=== PATIENT | female | born 1990 ===

== ENCOUNTER 2020-07-09 19:49 | Emergency (ER) | payer OTHER ==
[2020-07-09] MEDS ORDERED: HYDROcodone/ACETAMINOPHEN 7.5-325MG TAB PO ONE (21:15)
[2020-07-09] MEDS ORDERED: TETANUS,DIPH,PERTUSS(ACELL) VACCINE 0.5 ML SYRINGE IM ONE (21:15)
[2020-07-09 21:43] LABS: Basophils # (Auto) 0.1 K/mm3 (0.0-0.1); Basophils % (Auto) 0.6 % (0.0-1.8); Eosinophils # (Auto) 0.2 K/mm3 (0.0-0.4); Eosinophils % (Auto) 2.1 % (0.0-4.3); Hematocrit 37.9 % (30.3-42.9); Hemoglobin 13.2 gm/dl (10.1-14.3); Lymphocytes # (Auto) 2.6 K/mm3 (1.2-5.4); Lymphocytes % (Auto) 27.9 % (13.4-35.0); Mean Corpuscular HGB Conc 35 % (30-34); Mean Corpuscular Volume 89 fl (79-97); Monocytes # (Auto) 0.6 K/mm3 (0.0-0.8); Monocytes % (Auto) 6.6 % (0.0-7.3); Platelet Count 333 K/mm3 (140-440); Red Blood Count 4.25 M/mm3 (3.65-5.03); Red Cell Distribution Width 12.5 % (13.2-15.2)
[2020-07-09 22:08] LABS: Alanine Aminotransferase 14 units/L (7-56); Albumin 3.4 g/dL (3.9-5); Blood Urea Nitrogen 6 mg/dL (7-17); Calcium 8.7 mg/dL (8.4-10.2); Hemolysis Index 5
[2020-07-09 22:15] LABS: BUN/Creatinine Ratio 10
--- NOTE | 2020-07-09 22:58 | XRay Report ---
LEFT FOOT 3 VIEW(S) INDICATION / CLINICAL INFORMATION: right big toe injury COMPARISON: None available. FINDINGS: BONES / JOINT(S): Comminuted and displaced intra-articular fracture at the base of the great toe dist al phalanx involving the IP joint. No dislocation. No significant arthritis. SOFT TISSUES: Soft tissue swelling surrounding the IP joint of the great toe. ADDITIONAL FINDINGS: None. Signer Name: Gene Tello MD Signed: 07/09/2020 10:53 PM Workstation Name: [id number]
[2020-07-09] MEDS ORDERED: CLINDAMYCIN 600 MG/50 mL 600 MG/50 ML BAG IV ONE (23:00)
[2020-07-09] MEDS ORDERED: ONDANSETRON 4 MG/2 ML INJ IV ONE (23:00)
[2020-07-09] MEDS ORDERED: MORPHINE 4 MG/1 ML INJ IV ONE (23:00)
[2020-07-09] MEDS ORDERED: LORazepam 2 MG/ML VIAL IV ONE (23:11)
--- NOTE | 2020-07-09 23:22 | Emergency Department Report ---
ED General Adult HPI - General Chief complaint: Extremity Injury, Lower Stated complaint: BILATERAL FINGER INJURY/RT LEG/TOE INJURY Time Seen by Provider: 07/09/20 21:08 Source: patient Mode of arrival: Ambulatory Limitations: No Limitations - History of Present Illness Initial comments: Patient is a 29-year-old female presents emergency room complaints of infection of her left middle finger and right thumb that began approximately 5 days ago. 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 She states that she has a history of uncontrolled diabetes. 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 She reports that today she hit her right big toe against a weight and now has toe pain and swelling. She states that also 5 days ago she stepped on some thumbtacks on her left foot but they did not get stuck and were able to easily be removed without difficulty. She states that she seen a small amount of drainage from her fingers. She denies any drainage from her feet. She has a history of neuropathy but denies any worsening of numbness. She denies any weakness. No fever, vomiting, diarrhea, chills. No allergies to medicines. Severity scale (0 -10): 4 - Related Data Previous Rx's Medication Instructions Recorded Last Taken Type Clindamycin [Clindamycin CAP] 450 mg PO TID 7 Days #63 capsule 07/10/20 Unknown Rx Neomycin/Bacitracin/Polymyxinb 1 applicatio TP BID #14 oint...g. 07/10/20 Unknown Rx [Triple Antibiotic Ointment] traMADoL [Ultram 50 MG tab] 50 mg PO Q8HR PRN #10 tablet 07/10/20 Unknown Rx Allergies Allergy/AdvReac Type Severity Reaction Status Date / Time No Known Allergies Allergy Verified 07/09/20 22:00 ED Review of Systems ROS: Stated complaint: BILATERAL FINGER INJURY/RT LEG/TOE INJURY Other details as noted in HPI Comment: All other systems reviewed and negative ED Past Medical Hx - Past Medical History Previous Medical History?: Yes Hx Diabetes: Yes - Surgical History Past Surgical History?: No - Social History Smoking Status: Current Every Day Smoker Substance Use Type: Alcohol, Marijuana - Medications Home Medications: Home Medications Medication Instructions Recorded Confirmed Last Taken Type Clindamycin [Clindamycin CAP] 450 mg PO TID 7 Days #63 capsule 07/10/20 Unknown Rx Neomycin/Bacitracin/Polymyxinb 1 applicatio TP BID #14 oint...g. 07/10/20 Unknown Rx [Triple Antibiotic Ointment] traMADoL [Ultram 50 MG tab] 50 mg PO Q8HR PRN #10 tablet 07/10/20 Unknown Rx ED Physical Exam - General Limitations: No Limitations General appearance: alert, in no apparent distress - Head Head exam: Present: atraumatic, normocephalic - Eye Eye exam: Present: normal appearance - ENT ENT exam: Present: mucous membranes moist - Respiratory Respiratory exam: Absent: respiratory distress, accessory muscle use - Extremities Exam Extremities exam: Present: pedal edema ( ttp and mild edema to the right big toe, no induration or signs of infection to the right big toe, no signs of puncture to the left foot, no ttp, FROM of the BLE, neurovascularly intact BU E/BLE), other (there is a 2 cm area of induration to the distal end of the left middle finger palmar surface with fluctuance, there is a 1 cm blister filled with fluid and pus to the dorsal surface of the right thumb, FROM of the BUE, ) - Neurological Exam Neurological exam: Present: alert, oriented X3 - Psychiatric Psychiatric exam: Present: normal affect, normal mood - Skin Skin exam: Present: warm, dry ED Course Vital Signs 07/09/20 20:44 Temperature 98.3 F Pulse Rate 121 H Respiratory 18 Rate Blood Pressure 127/93 O2 Sat by Pulse 97 Oximetry - I & D Left Finger Type of Procedure: Complex Site: left middle finger, right thumb Blade Size: 11 I & D Procedure: betadine prep, sterile drapes applied, sterile dressing applied Progress: 2 procedures were performed Verbal consent given, risk and benefits discussed and alternatives There is a felon present to the left middle finger on the palmar surface, Betadine prep, digital block performed, 8 cc of 1% lidocaine without epinephrine used as anesthetic, aspirated to make sure not in the vessel, good anesthesia achieved, Betadine prep again, sterile drapes applied, 11 blade used to make 1 cm incision, copious amounts of purulent drainage expressed, irrigated with saline, packed with iodoform gauze, patient tolerated well, no complications, bleeding controlled, sterile dressing applied There is a fluid-filled and purulent filled blister present to the right thumb above the nailbed, Betadine prep, 2 cc of 1% lidocaine without epinephrine used as anesthetic, Betadine prep again, sterile drapes applied, needle aspiration performed, serous and purulent drainage expressed, irrigated with saline, patient tolerated well, no complications, bleeding controlled, sterile dressing applied ED Medical Decision Making - Lab Data Result diagrams: 07/09/20 21:33 07/09/20 21:33 - Radiology Data Radiology results: report reviewed Ordering Physician: SARAH LOPEZ Date of Service: 07/09/20 Procedure(s): XR hand BILAT 2V Accession Number(s): [id number] cc: SARAH LOPEZ Fluoro Time In Minutes: BILATERAL HAND RADIOGRAPH, 4 VIEWS INDICATION / CLINICAL INFORMAT ION: infection right thumb, infection middle finger COMPARISON: None available. FINDINGS: RIGHT HAND: No acute displaced fracture or dislocation. No significant arthritis. No osseous erosion. No significant soft tissue abnormality. There is no radiopaque foreign object. LEFT HAND: Soft tissue swelling of the long finger. No underlying acute displaced fracture identified. There is no evidence of osseous erosion. No significant arthritis. There is no radiopaque foreign object. Signer Name: Symone Guevara MD Signed: 07/09/2020 11:22 PM Workstation Name: [id number] Transcribed By: [facility] Dictated By: Symone Guevara MD Electronically Authenticated By: Symone Guevara MD Signed Date/Time: 07/09/202321 DD/ 18 TD/TT: Print Cancel Ordering Physician: SARAH LOPEZ Date of Service: 07/09/20 Procedure(s): XR foot 3+V RT Accession Number(s): [id number] cc: SARAH LOPEZ Fluoro Time In Minutes: LEFT FOOT 3 VIEW(S) INDICATION / CLINICAL INFORMATION: right big toe injury COMPARISON: None available. FINDINGS: BONES / JOINT(S): Comminuted and displaced intra-articular fracture at the base of the great toe distal phalanx involving the IP joint. No dislocation. No significant arthritis. SOFT TISSUES: Soft tissue swelling surrounding the IP joint of the great toe. ADDITIONAL FINDINGS: None. Signer Name: Gene Luke MD Signed: 07/09/2020 10:53 PM Workstation Name: [id number] Transcribed By: Dictated By: GENE LUKE Electronically Authenticated By: GENE LUKE Signed Date/Time: 07/09/202252 DD/ 51 TD/TT: Print - Medical Decision Making Patient is a 29-year-old female presents emergency room complaints of infection of her left middle finger and right thumb that began approximately 5 days ago. Patient states that she was working in a [employer] patch and got stuck by the [employer]. She states that she has a history of uncontrolled diabetes. 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 She reports that today she hit her right big toe against a weight and now has toe pain and swelling. She states that also 5 days ago she stepped on some thumbtacks on her left foot but they did not get stuck and were able to easily be removed without difficulty. She states that she seen a small amount of drainage from her fingers. She denies any drainage from her feet. She has a history of neuropathy but denies any worsening of numbness. She denies any weakness. No fever, vomiting, diarrhea, chills. No allergies to medicines. Initial vitals with tachycardia which improved upon repeat. On exam:there is a 2 cm area of induration to the distal end of the left middle finger palmar surface with fluctuance, there is a 1 cm blister filled with fluid and pus to the dorsal surface of the right thumb, FROM of the BUE, ttp and mild edema to the right big toe, no induration or signs of infection to the right big toe, no signs of puncture to the left foot, no ttp, FROM of the BLE, neurovascularly intact BUE/BLE. I&D performed per procedure note. Labs are stable. No leukocytosis, no lactic acidosis. Patient does have hyperglycemia but she states this is typical for her. X-ray foot: BONES / JOINT(S): Comminuted and displaced intra-articular fracture at the base of the great toe distal phalanx involving the IP joint. No dislocation. No significant arthritis. SOFT TISSUES: Soft tissue swelling surrounding the IP joint of the great toe. ADDITIONAL FINDINGS: None. X-ray hands:RIGHT HAND: No acute displaced fracture or dislocation. No significant arthritis. No osseous erosion. No significant soft tissue abnormality. There is no radiopaque foreign object. LEFT HAND: Soft tissue swelling of the long finger. No underlying acute displaced fracture identified. There is no evidence of osseous erosion. No significant arthritis. There is no radiopaque foreign object. Patient placed in postop shoe, domonique taping performed by element winding machine tender, given crutches, remain neurovascularly intact. Discussed all results with patient answered questions. Discussed the importance of reexamination in the next 3 days. Discussed very strict return precautions in detail with patient. Advised patient Please use medication as prescribed. Do not drive or operate heavy machinery while taking severe pain medication. Packing needs to be removed in 2 days, please return back to the emergency room. Follow-up with your primary care doctor. Follow-up with orthopedic doctor. Return to emergency room immediately for any new or worsening symptoms. Critical care attestation.: If time is entered above; I have spent that time in minutes in the direct care of this critically ill patient, excluding procedure time. ED Disposition Clinical Impression: Felon of digit, Abscess Toe fracture, right Qualifiers: Encounter type: initial encounter Toe: great toe Fracture type: closed Phalanx: distal Fracture alignment: displaced Qualified Code(s): S92.421A - Displaced fracture of distal phalanx of right great toe, initial encounter for closed fracture Disposition: DC-01 TO HOME OR SELFCARE Is pt being admited?: No Does the pt Need Aspirin: No Condition: Stable Instructions: Toe Fracture, [id number], Skin Abscess Additional Instructions: Please use medication as prescribed. Do not drive or operate heavy machinery while taking severe pain medication. Packing needs to be removed in 2 days, ple ase return back to the emergency room. Follow-up with your primary care doctor. Follow-up with orthopedic doctor. Return to emergency room immediately for any new or worsening symptoms. Prescriptions: Clindamycin [Clindamycin CAP] 450 mg PO TID 7 Days #63 capsule Neomycin/Bacitracin/Polymyxinb [Triple Antibiotic Ointment] 1 applicatio TP BID #14 oint...g. traMADoL [Ultram 50 MG tab] 50 mg PO Q8HR PRN #10 tablet PRN Reason: Pain , Severe (7-10) Referrals: RUPAL BOLAÑOS [Other] - 2-3 Days FEI ZUNIGA MD [Staff Physician] - 2-3 Days Time of Disposition: 00:40 Print Language: VIETNAMESE
--- NOTE | 2020-07-09 23:27 | XRay Report ---
BILATERAL HAND RADIOGRAPH, 4 VIEWS INDICATION / CLINICAL INFORMATION: infection right thumb, infection middle finger COMPARISON: None available. FINDINGS: RIGHT HAND: No acute displaced fracture or dislocation. No significant arthritis. No osseous erosion. No significant soft tissue abnormality. There is no radiopaque foreign object. LEFT HAND: Soft tissue swelling of the long finger. No underlying acute displaced fracture identified . There is no evidence of osseous erosion. No significant arthritis. There is no radiopaque foreign o bject. Signer Name: Symone Guevara MD Signed: 07/09/2020 11:22 PM Workstation Name: [id number]
[2020-07-10] MEDS ORDERED: NEOMY 3.5 MG/BACIT 400 UNITS/POLY B 5000 UNITS/GM OINT PACKET TP ONE (00:28)
[2020-07-10 03:54] VITALS: BP 117/79
== END 2020-07-10 02:45 | disposition home or self-care (01) ==
LOC: ED 19:49
DX: S92.491A Other fracture of right great toe, initial encounter for closed fracture (principal); L03.011 Cellulitis of right finger; E11.9 Type 2 diabetes mellitus without complications; F17.200 Nicotine dependence, unspecified, uncomplicated; F12.10 Cannabis abuse, uncomplicated; Z79.2 Long term (current) use of antibiotics; Z79.899 Other long term (current) drug therapy; W22.8XXA Striking against or struck by other objects, initial encounter; Y93.89 Activity, other specified; Y92.89 Other specified places as the place of occurrence of the external cause; Y99.8 Other external cause status
CPT/HCPCS: 10060; 36415; 73120; 73630; 80053; 82140; 84703; 85025; 86140; 90471; 90715; 96365; 96375; 99284; A6250; J2060; J2270; J2405